=== PATIENT | male | born 1945 | race Caucasian/White ===

== ENCOUNTER 2016-06-28 05:55 | Day surgery (SDC) | payer OTHER ==
[~2016-06-28 05:55] MED LIST: ANOROELLIPTA INH; ARICEPT10 PO; ATRONASAL3 NAS; BUSPAR10 PO; CALTRA600D PO; FISH-EPA1000 MG PO; FLOMAX4 PO; FLONASE NAS; INHALER INH; MULTIPLE VIT PO; NEUR100 PO; SEROQUEL50 MG PO; SINEMET PO; ULTRAM50 PO; ZOCOR40 PO
== END 2016-06-28 07:57 | disposition home or self-care (01) ==
LOC: SDC 05:55
PROVIDERS: Orthopaedic Surgery
PROC: 3E0R3BZ Introduction of Anesthetic Agent into Spinal Canal, Percutaneous Approach (ICD-10-PCS; 2016-06-28)
PROC: 3E0R33Z Introduction of Anti-inflammatory into Spinal Canal, Percutaneous Approach (ICD-10-PCS; principal; 2016-06-28 07:00)
DX: M54.16 Radiculopathy, lumbar region (principal); M54.5 Low back pain; G20 Parkinson's disease; H91.90 Unspecified hearing loss, unspecified ear; E78.00 Pure hypercholesterolemia, unspecified; R01.1 Cardiac murmur, unspecified; J44.9 Chronic obstructive pulmonary disease, unspecified; G47.30 Sleep apnea, unspecified; M19.90 Unspecified osteoarthritis, unspecified site; N40.0 Benign prostatic hyperplasia without lower urinary tract symptoms; F31.9 Bipolar disorder, unspecified; F41.9 Anxiety disorder, unspecified; Z97.4 Presence of external hearing-aid; Z98.890 Other specified postprocedural states; Z88.1 Allergy status to other antibiotic agents; Z86.73 Personal history of transient ischemic attack (TIA), and cerebral infarction without residual deficits; Z86.711 Personal history of pulmonary embolism
CPT/HCPCS: J2250; J3010; Q9967